=== PATIENT | male | born 1980 | race Caucasian/White ===

== ENCOUNTER 2017-08-07 20:40 | Emergency (ER) | payer OTHER ==
[2017-08-07 20:58] VITALS: BP 189/114; PULSE 87; O2SAT 100
--- NOTE | 2017-08-07 21:54 | ERPHSYRPT ---
- History of Present Illness Time Seen by Provider: 08/07/17 21:41 Historian: patient Exam Limitations: no limitations Patient Subjective Stated Complaint: Pt arrives to ER with c/o LUQ abdominal pain that originates in back stating pain wraps around flank intermittently for past year stating on for a few days and has weeks in between "flare ups". Denies fever. states had some diarrhea yesterday and N/V 2 days ago. 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 States movement makes pain worse. Triage Nursing Assessment: A&Ox4 does not appear to be in any distress at this time. No acute tenderness to palpation. Allergies/Adverse Reactions: No Known Drug Allergies Allergy (Verified 08/07/17 20:58) Home Medications: No Reportable Medications [No Reported Medications] 08/07/17 [History] Hx Tetanus, Diphtheria Vaccination/Date Given: Yes Hx Influenza Vaccination/Date Given: No Hx Pneumococcal Vaccination/Date Given: No - Past Medical History Pertinent Past Medical History: Yes Neurological History: No Pertinent History ENT History: No Pertinent History Cardiac History: Hypertension Respiratory History: No Pertinent History Endocrine Medical History: No Pertinent History Musculoskeletal History: Other GI Medical History: No Pertinent History History: No Pertinent History Psycho-Social History: No Pertinent History Male Reproductive Disorders: No Pertinent History Other Medical History: back problems - Past Surgical History Past Surgical History: Yes Neuro Surgical History: No Pertinent History Cardiac: No Pertinent History Respiratory: No Pertinent History Gastrointestinal: No Pertinent History Genitourinary: No Pertinent History Musculoskeletal: Orthopedic Surgery Male Surgical History: No Pertinent History Other Surgical History: right jaw - Social History Smoking Status: Current every day smoker Exposure to second hand smoke: Yes Drug Use: none Patient Lives Alone: No - Nursing Vital Signs Nursing Vital Signs: Initial Vital Signs Temperature 98.3 F 08/07/17 20:46 Pulse Rate 87 08/07/17 20:46 Respiratory Rate 18 08/07/17 20:46 Blood Pressure 189/114 08/07/17 20:46 O2 Sat by Pulse Oximetry 100 08/07/17 20:46 Pain Scale Pain Intensity 3 - Physical Exam SpO2: 100 Oxygen Delivery: Room Air - Departure Referrals: DOCTOR,NO FAMILY [Primary Care Provider] -
--- NOTE | 2017-08-07 22:00 | ERPHSYRPT ---
- History of Present Illness Time Seen by Provider: 08/07/17 21:41 Source: patient Exam Limitations: no limitations Patient Subjective Stated Complaint: Pt arrives to ER with c/o LUQ abdominal pain that originates in back stating pain wraps around flank intermittently for past year stating on for a few days and has weeks in between "flare ups". Denies fever. states had some diarrhea yesterday and N/V 2 days ago. 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 States movement makes pain worse. Triage Nursing Assessment: A&Ox4 does not appear to be in any distress at this time. No acute tenderness to palpation. Physician History: The patient is a 37-year-old male who states he just got insurance and wants to be evaluated for left-sided mid back pain that has been intermittent for 5 years. He is a vague historian. 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 He says sometimes his left mid back began to hurt and radiates around the left side of his ribs to the front of his chest. He will wear a chest strap for a few days and then feel better. This is once again flared up the past 2 or 3 days. 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 His past medical history is unremarkable. Timing/Duration: other (5 years) Method of Injury: unknown Quality: aching Back Pain Location: paraspinous muscles (left) Severity of Pain-Max: mild Severity of Pain-Current: mild Modifying Factors: Improves With: other (chest wrap) Associated Symptoms: denies symptoms Previous symptoms: no prior history Allergies/Adverse Reactions: No Known Drug Allergies Allergy (Verified 08/07/17 20:58) Home Medications: No Reportable Medications [No Reported Medications] 08/07/17 [History] Hx Tetanus, Diphtheria Vaccination/Date Given: Yes Hx Influenza Vaccination/Date Given: No Hx Pneumococcal Vaccination/Date Given: No - Review of Systems Constitutional: No Fever, No Chills Eyes: No Symptoms Ears, Nose, & Throat: No Symptoms Respiratory: No Cough, No Dyspnea Cardiac: No Chest Pain, No Edema, No Syncope Abdominal/Gastrointestinal: No Abdominal Pain, No Nausea, No Vomiting, No Diarrhea Genitourinary Symptoms: No Dysuria Musculoskeletal: Back Pain, No Neck Pain Skin: No Rash Neurological: No Dizziness, No Focal Weakness, No Sensory Changes Psychological: No Symptoms Endocrine: No Symptoms Hematologic/Lymphatic: No Symptoms Immunological/Allergic: No Symptoms All Other Systems: Reviewed and Negative - Past Medical History Pertinent Past Medical History: Yes Neurological History: No Pertinent History ENT History: No Pertinent History Cardiac History: Hypertension Respiratory History: No Pertinent History Endocrine Medical History: No Pertinent History Musculoskeletal History: Other GI Medical History: No Pertinent History History: No Pertinent History Psycho-Social History: No Pertinent History Male Reproductive Disorders: No Pertinent History Other Medical History: back problems - Past Surgical History Past Surgical History: Yes Neuro Surgical History: No Pertinent History Cardiac: No Pertinent History Respiratory: No Pertinent History Gastrointestinal: No Pertinent History Genitourinary: No Pertinent History Musculoskeletal: Orthopedic Surgery Male Surgical History: No Pertinent History Other Surgical History: right jaw - Social History Smoking Status: Current every day smoker Exposure to second hand smoke: Yes Drug Use: none Patient Lives Alone: No - Nursing Vital Signs Nursing Vital Signs: Initial Vital Signs Temperature 98.3 F 08/07/17 20:46 Pulse Rate 87 08/07/17 20:46 Respiratory Rate 18 08/07/17 20:46 Blood Pressure 189/114 08/07/17 20:46 O2 Sat by Pulse Oximetry 100 08/07/17 20:46 Pain Scale Pain Intensity 3 - Physical Exam General Appearance: no apparent distress, alert Eye Exam: PERRL/EOMI, eyes nml inspection Ears, Nose, Throat Exam: normal ENT inspection Neck Exam: normal inspection, non-tender, supple, full range of motion, No meningismus, No midline tenderness Respiratory Exam: normal breath sounds, lungs clear, No respiratory distress Cardiovascular Exam: regular rate/rhythm, normal heart sounds Gastrointestinal Exam: soft, No tenderness, No mass Rectal Exam: not done Back Exam: muscle spasm (left thoracic paraspinous) Extremity Exam: normal inspection, normal range of motion, No calf tenderness, No pedal edema Neurologic Exam: alert, oriented x 3, cooperative, 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 You have declined Flexeril. You agreed to apply ice to the area as needed. Follow-up with the local physician if no improvement.
== END 2017-08-07 22:06 | disposition left against medical advice (07) ==
LOC: ED 20:40
DX: M62.830 Muscle spasm of back (principal)
CPT/HCPCS: 99281; 99283

== ENCOUNTER 2019-01-31 02:08 | Emergency (ER) | payer OTHER ==
[2019-01-31] MEDS ORDERED: BACIGUENT PACKET TP ONE (02:43)
[2019-01-31] MEDS ORDERED: Adacel Vial IM ONE ×2 (02:43→03:01)
[2019-01-31] MEDS ORDERED: XYLOCAINE 1% HCL 20 ML MDV IJ ONE (02:43)
[2019-01-31] MEDS ORDERED: NORCO 7.5/325 MG TAB PO ONE (02:45)
--- NOTE | 2019-01-31 02:52 | ERPHSYRPT ---
- History of Present Illness Time Seen by Provider: 01/31/19 02:22 Source: patient Exam Limitations: no limitations Patient Subjective Stated Complaint: patient presents with pain in the left thumb. He was working at home when he cut the distal phalanx of the left thumb with a "saw all." This occurred approximately 10 hours prior to his arrival Occurred: yesterday Method of Injury: incised Quality: aching, burning, sharpness, throbbing Severity of Pain-Max: severe Severity of Pain-Current: moderate Extremities Pain Location: thumb: left Modifying Factors: Improves With: movement Associated Symptoms: none Allergies/Adverse Reactions: No Known Drug Allergies Allergy (Verified 08/07/17 20:58) Home Medications: No Reportable Medications [No Reported Medications] 08/07/17 [History] Hx Tetanus, Diphtheria Vaccination/Date Given: Yes Hx Influenza Vaccination/Date Given: No Hx Pneumococcal Vaccination/Date Given: No - Review of Systems Constitutional: No Fever, No Chills Eyes: No Symptoms Ears, Nose, & Throat: No Symptoms Respiratory: No Cough, No Dyspnea Cardiac: No Chest Pain, No Edema, No Syncope Abdominal/Gastrointestinal: No Abdominal Pain, No Nausea, No Vomiting, No Diarrhea Genitourinary Symptoms: No Dysuria Musculoskeletal: Joint Pain, No Back Pain, No Neck Pain Skin: No Rash Neurological: No Dizziness, No Focal Weakness, No Sensory Changes Psychological: No Symptoms Endocrine: No Symptoms All Other Systems: Reviewed and Negative - Past Medical History Pertinent Past Medical History: Yes Neurological History: No Pertinent History ENT History: No Pertinent History Cardiac History: Hypertension Respiratory History: No Pertinent History Endocrine Medical History: No Pertinent History Musculoskeletal History: Other GI Medical History: No Pertinent History History: No Pertinent History Psycho-Social History: No Pertinent History Male Reproductive Disorders: No Pertinent History Other Medical History: back problems - Past Surgical History Past Surgical History: Yes Neuro Surgical History: No Pertinent History Cardiac: No Pertinent History Respiratory: No Pertinent History Gastrointestinal: No Pertinent History Genitourinary: No Pertinent History Musculoskeletal: Orthopedic Surgery Male Surgical History: No Pertinent History Other Surgical History: right jaw - Social History Smoking Status: Current every day smoker Exposure to second hand smoke: Yes Drug Use: none Patient Lives Alone: No - Physical Exam General Appearance: moderate distress, alert, anxiety Eyes, Ears, Nose, Throat Exam: moist mucous membranes Neck Exam: normal inspection, supple, full range of motion Hand Exam: normal inspection, normal ROM, laceration, limited ROM, soft tissue tenderness, swelling DTR - Upper Extremity Exam: bicep (R): 2+, bicep (L): 2+, tricep (R): 2+, tricep (L): 2+ Neuro/Tendon Exam: normal sensation, normal motor functions, normal tendon functions, responds to pain, withdraws to pain Mental Status Exam: alert, oriented x 3, cooperative Skin Exam: normal color, warm, dry SpO2 Interpretation: normal O2 Delivery: Room Air Procedures - Laceration/Wound Repair Left Upper Distal Finger Wound Location: Left, hand Wound Length (cm): 1.5 Wound's Depth, Shape: superficial Wound Explored: contaminated Irrigated: Yes Hibiclens Prep: Yes Anesthesia: 1% Lidocaine Volume Anesthetic (ccs): 5 Wound Debrided: moderate Wound Repaired With: sutures Suture Size/Type: 4-0, nylon Number of Sutures: 2 Layer Closure?: No Sterile Dressing Applied?: Yes Splint Applied?: No Ordered Tests: Medication Summary Discontinued Medications Generic Name Dose Route Start Last Admin Trade Name Amanda PRN Reason Stop Dose Admin Hydrocodone Bitart/Acetaminophen 1 tab 01/31/19 02:45 Alda 7.5/325 Mg Tab PO 01/31/19 02:46 STAT ONE Bacitracin Zinc 0.9 gm 01/31/19 02:43 Baciguent Packet TP 01/31/19 02:44 STAT ONE Diphtheria/Tetanus/Acell Pertussis 0.5 ml 01/31/19 02:43 Adacel Vial IM 01/31/19 02:44 .ONCE ONE Lidocaine HCl 5 ml 01/31/19 02:43 Xylocaine 1% Hcl 20 Ml Mdv IJ 01/31/19 02:44 STAT ONE - Progress Progress: improved - Departure Departure Disposition: Home Clinical Impression: Laceration of thumb Qualifiers: Encounter type: initial encounter Damage to nail status: without damage Foreign body presence: without foreign body Laterality: left Qualified Code(s): S61.012A - Laceration without foreign body of left thumb without damage to nail , initial encounter Condition: Stable Critical Care Time: No Referrals: DOCTOR,NO FAMILY [Primary Care Provider] - Instructions: Wound Care (DC), Laceration Repair With Stitches (DC) Additional Instructions: Sutures out in 10 days
[2019-01-31] MEDS ORDERED: NORCO 7.5/325 MG TAB PO PRN (02:59)
[2019-01-31] MEDS ORDERED: BACIGUENT PACKET ONE (03:00)
[2019-01-31] MEDS ORDERED: NORCO 5/325 MG ONE (03:00)
[2019-01-31 03:21] VITALS: BP 139/93; PULSE 83; O2SAT 97
[2019-01-31] MEDS ORDERED: KEFLEX 500 MG PO SCH (10:00)
== END 2019-01-31 03:20 | disposition home or self-care (01) ==
LOC: ED 02:08
PROC: 0HQGXZZ Repair Left Hand Skin, External Approach (ICD-10-PCS; principal; 2019-01-31)
DX: S61.012A Laceration without foreign body of left thumb without damage to nail, initial encounter (principal); W29.8XXA Contact with other powered hand tools and household machinery, initial encounter; Y93.9 Activity, unspecified; Y92.9 Unspecified place or not applicable
CPT/HCPCS: 12001; 90471; 90715; 99283; A9270-GY

== ENCOUNTER 2021-10-24 16:02 | Emergency (ER) | payer OTHER ==
--- NOTE | 2021-10-24 16:10 | ERPHSYRPT ---
- History of Present Illness Time Seen by Provider: 10/24/21 16:10 Source: patient Exam Limitations: no limitations Physician History: This is a 41-year-old white male who presents with left earache that was abrupt in onset this morning. He has had these in the past and if he does not receive antibiotic fairly quickly, it is his experience that the earache progressively worsens. Patient states he has no known drug allergies. Timing/Duration: abrupt onset, this morning Prearrival Treatment: no prearrival treatment Associated Symptoms: ear pain (L) Allergies/Adverse Reactions: No Known Drug Allergies Allergy (Verified 01/31/19 02:59) Hx Tetanus, Diphtheria Vaccination/Date Given: Yes Hx Influenza Vaccination/Date Given: No Hx Pneumococcal Vaccination/Date Given: No Travel Risk - International Travel Have you traveled outside of the country in past 3 weeks: No - Coronavirus Screening Are you exhibiting any of the following symptoms?: No Close contact with a COVID-19 positive Pt in past 14-21 Days: No - Review of Systems Constitutional: No Symptoms Eyes: No Symptoms Ears, Nose, & Throat: Ear Pain Respiratory: No Symptoms (Left) Cardiac: No Symptoms Abdominal/Gastrointestinal: No Symptoms Genitourinary Symptoms: No Symptoms Musculoskeletal: No Symptoms Skin: No Symptoms Neurological: No Symptoms Psychological: No Symptoms Endocrine: No Symptoms Hematologic/Lymphatic: No Symptoms Immunological/Allergic: No Symptoms All Other Systems: Reviewed and Negative - Past Medical History Pertinent Past Medical History: Yes Neurological History: No Pertinent History ENT History: No Pertinent History Cardiac History: Hypertension Respiratory History: No Pertinent History Endocrine Medical History: No Pertinent History Musculoskeletal History: Other GI Medical History: No Pertinent History History: No Pertinent History Psycho-Social History: No Pertinent History Male Reproductive Disorders: No Pertinent History Other Medical History: back problems - Past Surgical History Past Surgical History: Yes Neuro Surgical History: No Pertinent History Cardiac: No Pertinent History Respiratory: No Pertinent History Gastrointestinal: No Pertinent History Genitourinary: No Pertinent History Musculoskeletal: Orthopedic Surgery Male Surgical History: No Pertinent History Other Surgical History: right jaw - Social History Smoking Status: Current every day smoker Exposure to second hand smoke: Yes Drug Use: none Patient Lives Alone: No - Nursing Vital Signs Nursing Vital Signs: Initial Vital Signs Temperature 98.2 F 10/24/21 16:09 Pulse Rate 108 H 10/24/21 16:09 Respiratory Rate 19 10/24/21 16:09 Blood Pressure 171/112 10/24/21 16:09 O2 Sat by Pulse Oximetry 99 10/24/21 16:09 Pain Scale Pain Intensity 5 - Physical Exam General Appearance: no apparent distress, alert Eye Exam: bilateral eye: normal inspection, PERRL, EOMI Ear Exam: right ear: canal normal, TM normal, left ear: tenderness, TM red (Mild redness with redness of the left ear canal), bilateral ear: auricle normal Nasal Exam: normal inspection Throat Exam: normal Neck Exam: normal inspection Cardiovascular/Respiratory Exam: chest non-tender, no respiratory distress Abdominal Exam: non-tender Neurologic Exam: alert, oriented x 3, cooperative, route sales person II-XII nml as tested, normal mood/affect, nml cerebellar function, nml station & gait, sensation nml Skin Exam: normal color, warm, dry SpO2 Interpretation: normal O2 Delivery: Room Air - Course Nursing assessment & vital signs reviewed: Yes - Progress Progress: unchanged Counseled pt/family regarding: diagnosis, need for follow-up - Departure Departure Disposition: Home Clinical Impression: Left otitis media Condition: Stable Critical Care Time: No Referrals: DOCTOR,NO FAMILY [Primary Care Provider] - Follow up/PCP as directed Additional Instructions: Take your medication as prescribed. May add Tylenol for pain control. Follow- up with your primary care physician as an outpatient if symptoms persist beyond 48 hours. Prescriptions: Amoxicillin 500 mg Cap [Amoxil 500 mg] 500 mg PO TID #30 cap Prednisone 10 mg [Deltasone 10 mg] 10 mg PO TID #6 tablet
[2021-10-24 17:02] VITALS: BP 164/99; PULSE 100; O2SAT 96
== END 2021-10-24 17:02 | disposition home or self-care (01) ==
LOC: ED 16:02
DX: H66.92 Otitis media, unspecified, left ear (principal); I10 Essential (primary) hypertension; Z72.0 Tobacco use; Z79.52 Long term (current) use of systemic steroids
CPT/HCPCS: 99281